=== PATIENT | female | born 1990 | race Caucasian/White ===

== ENCOUNTER 2021-09-10 10:56 | Emergency (ER) | payer OTHER, SELFPAY ==
--- NOTE | 2021-09-10 11:03 | ED.GENADULT ---
HPI - General Adult General Chief complaint: Dental/Oral Stated complaint: Right Jaw Pain Time Seen by Provider: 09/10/21 11:03 Source: patient and RN notes reviewed Mode of arrival: ambulatory Limitations: no limitations History of Present Illness HPI narrative: 30-year-old female presents to the [facility] with complaints of right cheek pain since last night. Took ibuprofen last night. Denies any other symptoms Related Data Allergies Allergy/AdvReac Type Severity Reaction Status Date / Time No Known Allergies Allergy Unverified 09/10/21 11:07 Review of Systems Review of Systems: All systems reviewed & are unremarkable except as noted in HPI and below Constitutional: Constitutional: Reports no additional constitutional complaints, Denies chills and Denies fever(s) Eyes: Eyes: Reports no additional eye complaints ENT: Reports as per HPI Comments: Right cheek lump to shoulder with pain Cardiovascular: Cardiovascular: Reports no additional cardiovascular complaints Respiratory: Respiratory: Reports no additional respiratory complaints Gastrointestinal: Gastrointestinal: Reports no additional gastrointestinal complaints Musculoskeletal: Musculoskeletal: Reports no additional musculoskeletal complaints Integumentary/Breasts: Skin/Breast: Reports system reviewed and no additional complaints, except as docu Neurologic: Reports system reviewed and no additional complaints, except as documented Psychiatric: Psychiatric: Reports no additional psychiatric complaints Allergic/Immunologic: Allergic/Immunologic: Reports no additional allergic/immunologic complaints PMFSH Past Medical History Medical History (Updated 09/10/21 @ 13:42 by Dianna Martins) No significant medical problems Surgical History Surgical History (Updated 09/10/21 @ 13:42 by Dianna Martins) No significant past surgical history Comments At the time of my signature, I reviewed and agree with the nursing past medical, surgical, social, and family history. There is no relevant family history pertinent to the patient complaint. Exam Const: General: healthy appearing, no acute distress and alert Nutritional Appearance: well nourished Orientation/consciousness: patient oriented x3 Limitations: no limitations HENMT: Head: normal to inspection Ears: external ears normal General nose exam: Normal external nose present Mouth/tongue images: 1. Half centimeter raised area Eyes: Pupils: Equal, round and reactive pupils present Neck: Neck: normal visual inspection, no lymphadenopathy and no meningeal signs Chest: Chest palpation & inspection: normal inspection of the chest Resp: Effort & Inspection: normal respiratory effort and no use of accessory muscles Auscultation: clear to auscultation bilaterally, no crackles, no rales, no rhonchi and no wheezes Cardio: Rate: regular rate Rhythm: regular rhythm GI: GI Palp: Yes Soft to palpation and No Tenderness to palpation present (GI) : General: Yes no CVA tenderness Back/Spine/Pelvis: Back: no CVA tenderness Skin: General skin exam: normal color Rashes: no rashes Wounds: no wounds Neuro: General: patient oriented x3, moves all extremities, no meningeal signs and no focal motor deficits Cranial nerves: Yes Equal, round and reactive pupils present Speech: normal speech Gait exam (Neuro): Normal gait present Extrem: General: normal to inspection Psych: Appearance: grossly normal and well kempt Mental Status: mental status grossly normal Affect: normal affect Attitude: cooperative Thought content: Yes Normal thought content present Course Course Emergency Course: Discharge instructions reviewed with patient, as well as provided in writing per nursing staff. The instructions also include specific and strict return/GO TO THE ER as well as f/u information. All questions have been answered, and the patient deny any further questions with discharge and discharge plan. Some par
[2021-09-10 11:04] VITALS: BP 129/78; PULSE 75; RESP 16; TEMP 36.7; O2SAT 99
== END 2021-09-10 11:11 | disposition home or self-care (01) ==
PROVIDERS: Emergency Provider Nurse Practitioner; PCP Family Medicine Adolescent Medicine
DX: K12.0 Recurrent oral aphthae (principal)
CPT/HCPCS: 99213; G0463

== ENCOUNTER 2022-10-13 17:41 | Emergency (ER) | payer OTHER, SELFPAY ==
[2022-10-13] VITALS (7 sets, daily range): BP systolic 116–123; BP diastolic 72; PULSE 76–102; RESP 16; TEMP 37.1; O2SAT 100
[2022-10-13 21:20] LABS: Basophils Percent Auto 0.3 % (0.2-1.2); Eosinophils Percent Auto 0.4 % (0-4.4); Hemoglobin 13.2 g/dL (12.0-15.0); Immature Granulocyte Absolute 0.04 K/mm3 (0.00-0.031); Immature Granulocyte Percent A 0.5 % (0-0.5); Lymphocytes Absolute Auto 0.91 K/mm3 (0.9-3.2); Lymphocytes Percent Auto 11.9 % (18.3-44.2); Mean Corpuscular HGB Conc 33.8 g/dl (32-36); Mean Corpuscular Hemoglobin 29.4 pg (26-34); Mean Corpuscular Volume 86.9 fl (80-100); Mean Platelet Volume 10.8 fl (7.4-10.4); Monocytes Absolute Auto 0.5 K/mm3 (0.1-0.6); Monocytes Percent Auto 7.1 % (2.6-8.5); Neutrophils Absolute Auto 6.1 K/mm3 (1.3-6.7); Neutrophils Percent Auto 79.8 % (45.5-73.1); Platelet Count Result 192 k/mm3 (150-375); Red Blood Count 4.49 M/mm3 (4.2-5.4); Red Cell Distribution Width 14.2 % (11.5-14.5); White Blood Count 7.6 K/mm3 (4.5-10.0)
[2022-10-13 21:26] LABS: Appearance Urine Slightly Cloudy (Clear); Bilirubin Urine 1+ (Negative); Blood Urine Negative (Negative); Color Urine Yellow (Yellow); Glucose Urine UA Negative (Negative); Ketones Urine 2+ mg/dL (Negative); Leukocyte Esterase Ur 1+ LEU/UL (Negative); Nitrate Urine Negative (Negative); Protein Urine 1+ mg/dL (Negative); Specific Grav Ur >= 1.030 (1.001-1.035); Urobilinogen Urine 0.2 mg/dL (<2.0)
[2022-10-13 21:30] LABS: Bacteria Urine Trace /hpf; Mucus Urine Heavy /lpf; Squamous Epithelial Cell Urine Many /hpf (Few)
[2022-10-13 21:31] LABS: Add Urine Microscopic? YES
[2022-10-13 21:33] LABS: Alanine Aminotransferase 20 U/L (6-35); Albumin Level 4.4 g/dL (3.5-5.1); Alkaline Phosphatase 75 U/L (38-126); Anion Gap 7 mmol/L (8-16); Aspartate Amino Transferase 21 U/L (14-36); Bilirubin,Total 0.5 mg/dL (0.2-1.3); Blood Urea Nitrogen 6 mg/dL (7-17); Calcium 8.8 mg/dL (8.4-10.2); Carbon Dioxide 25 mmol/L (22-30); Chloride 102 mmol/L (98-107); Estimated CRCL calculation 162 ml/min; Estimated Glomerular Filt Rate > 60; Glucose 121 mg/dL (65-110); Lipase 31 U/L (23-300); Potassium 3.6 mmol/L (3.4-5.0); Sodium 134 mmol/L (137-145)
--- NOTE | 2022-10-13 22:23 | ED.NAVMDI ---
HPI - Nausea/Vomiting/Diarrhea General Chief complaint: Nausea/Vomiting/Diarrhea Stated complaint: vomiting, 10 weeks Time Seen by Provider: 10/13/22 22:10 History of Present Illness HPI Narrative: 31-year-old female G3, P2 who is 10 weeks reports for nausea, vomiting, diarrhea that started last night. Patient reports around 10-15 episodes of vomiting throughout the night with 7 episodes of diarrhea. Denies hematemesis, melena, hematochezia. Patient reports positive sick contacts within her family who are sick with similar symptoms. Patient reports she feels improved today and has not vomited in 15 hours. Reports she called her OB about her illness and said her OB advised her to come to the ED if she would feel more comfortable. Patient denies abdominal pain, vaginal bleeding, back pain, chest pain, shortness of breath, body aches, chills, fever, dysuria, urinary frequency or urgency, hematuria. Patient reports she has an ultrasound that is confirmed intrauterine . Related Data Allergies Allergy/AdvReac Type Severity Reaction Status Date / Time No Known Allergies Allergy Verified 07/14/22 13:29 Review of Systems Review of Systems: CONSTITUTIONAL: Denies fever, chills EYES: Denies visual changes, redness, or discharge. ENT: Denies rhinorrhea, congestion, sore throat, or otalgia. CARDIOVASCULAR: Denies chest pain, palpitations, or edema. RESPIRATORY: Denies cough or dyspnea. GASTROINTESTINAL: See HPI GENITOURINARY: Denies dysuria or hematuria. SKIN: Denies rash or itching. MUSCULOSKELETAL: Denies back pain, joint pain, or myalgia. NEUROLOGIC: Denies headache, numbness, dizziness, or weakness. PSYCHIATRIC: Denies anxiety or depression. [facility] Past Medical History Medical History No significant medical problems Surgical History Surgical History No significant past surgical history Family History Family History Mother Diabetes mellitus Hypertension COPD (chronic obstructive pulmonary disease) Osteoporosis Father Hyperlipemia Arthritis Social History Social History Smoking status: Never smoker Second hand tobacco smoke exposure: No Alcohol intake: current Alcohol use details: Seldom Substance use: never Substance use type: does not use Living arrangements: with family Occupation/Education: unemployed Gender identity (if verbalized by the patient): Female Spiritual care concerns: No Agree to blood products: Yes Exam Narrative: GENERAL: Well-appearing, well-nourished, and in no acute distress. HEAD: Normocephalic, atraumatic. EYES: PERRLA and EOMI. ENT: Nares clear, no rhinorrhea or epistaxis. Mucous membranes moist. Oropharynx without tonsillar hypertrophy exudate or other lesions. NECK: Supple. No adenopathy or masses. CHEST: Clear to auscultation. No respiratory distress. No wheezes rales or rhonchi HEART: Regular rate and rhythm. No murmur heard. Normal peripheral pulses. ABDOMEN: Soft, nontender, nondistended, normal active bowel sounds. No CVA tenderness EXTREMITIES: Normal range of motion. No edema. SKIN: Warm, dry, no rash. NEURO: No focal deficits. Alert and oriented x3. PSYCH: Normal mood and affect. Course Vital Signs Vital signs: Vital Signs Temperature 98.8 F 10/13/22 18:26 Pulse Rate 76 10/13/22 18:26 Respiratory Rate 16 10/13/22 18:26 Blood Pressure 116/72 10/13/22 18:26 Pulse Oximetry 100 10/13/22 18:26 Oxygen Delivery Room Air 10/13/22 18:26 Temperature 98.8 F 10/13/22 18:26 Pulse Rate 102 H 10/13/22 21:04 Respiratory Rate 16 10/13/22 21:04 Blood Pressure 123/72 10/13/22 21:04 Pulse Oximetry 100 10/13/22 22:45 Oxygen Delivery Room Air 10/13/22 18:26
[2022-10-13] MEDS: METOCLOPRAMIDE HCL INJ 10 MG/2 ML VIAL IV PUSH (22:42)
[2022-10-13] MEDS: SODIUM CHLORIDE 0.9% IV 1,000 ML 999 ML IV CONT (22:42)
== END 2022-10-14 00:09 | disposition home or self-care (01) ==
PROVIDERS: Emergency Medicine; Emergency Provider Physician Assistant; PCP Family Medicine Adolescent Medicine
DX: O21.9 Vomiting of pregnancy, unspecified (principal); O99.611 Diseases of the digestive system complicating pregnancy, first trimester; K52.9 Noninfective gastroenteritis and colitis, unspecified; Z3A.10 10 weeks gestation of pregnancy
CPT/HCPCS: 36415; 80053; 81001; 81025; 83690; 85025; 96361; 96365; 96375; 99284; J0696; J2765; J7030

== ENCOUNTER 2022-12-16 11:36 | Outpatient (CLI) | payer OTHER, SELFPAY ==
--- NOTE | ~2022-12-16 | US_ITS ---
EXAMINATION: US OB limited DATE: 12/16/2022 12:44 INDICATION: Leaking fluid. Third trimester. TECHNIQUE: Real-time ultrasound of the pelvis was performed. COMPARISON: None. FINDINGS: There is a single fetus in transverse lie. The placenta is anterior. The cervical length is 4.4 cm o n transabdominal images, which is normal. heart rate is 138 beats per minute (bpm). The amnioti c fluid index is 9.3 cm, which is normal. IMPRESSION: 1. Single living fetus in transverse lie. 2. Normal amniotic fluid index. Reviewed, dictated and finalized at location A.
[2022-12-16 11:52] VITALS: BP 125/69; PULSE 97
--- NOTE | 2022-12-16 11:55 | PC.NURSE ---
Pt has complaint of possible rupture of membranes. Pt was leaving [facility] when she felt a gush and a trickle. Pt denies any further leaking. pt is 20 weeks, FHT dopplered at 155.
== END 2022-12-16 12:57 | disposition home or self-care (01) ==
LOC: ANHOBOP 11:40 → ANHOBPP 11:41
PROVIDERS: PCP Family Medicine Adolescent Medicine; Visit Provider Advanced Practice Midwife
DX: O42.913 Preterm premature rupture of membranes, unspecified as to length of time between rupture and onset of labor, third trimester (principal); Z3A.00 Weeks of gestation of pregnancy not specified
CPT/HCPCS: 76815; 84112; 99199

== ENCOUNTER 2023-01-11 14:59 | Emergency (ER) | payer OTHER, SELFPAY ==
[2023-01-11] VITALS (18 sets, daily range): BP systolic 100–129; BP diastolic 53–80; PULSE 79–109; RESP 15–18; TEMP 36.3–36.6; O2SAT 98–100
[2023-01-11 15:47] LABS: Basophils Percent Auto 0.4 % (0.2-1.2); Eosinophils Absolute Auto 0.2 K/mm3 (0-0.3); Eosinophils Percent Auto 2.5 % (0-4.4); Hematocrit 35.3 % (37.0-47.0); Hemoglobin 12.1 g/dL (12.0-15.0); Immature Granulocyte Absolute 0.03 K/mm3 (0.00-0.031); Immature Granulocyte Percent A 0.4 % (0-0.5); Lymphocytes Absolute Auto 0.58 K/mm3 (0.9-3.2); Lymphocytes Percent Auto 6.8 % (18.3-44.2); Mean Corpuscular HGB Conc 34.3 g/dl (32-36); Mean Corpuscular Hemoglobin 30.2 pg (26-34); Mean Platelet Volume 9.8 fl (7.4-10.4); Monocytes Absolute Auto 0.5 K/mm3 (0.1-0.6); Monocytes Percent Auto 5.7 % (2.6-8.5); Neutrophils Absolute Auto 7.2 K/mm3 (1.3-6.7); Neutrophils Percent Auto 84.2 % (45.5-73.1); Platelet Count Result 228 k/mm3 (150-375); Red Blood Count 4.01 M/mm3 (4.2-5.4); Red Cell Distribution Width 14.6 % (11.5-14.5); White Blood Count 8.5 K/mm3 (4.5-10.0)
[2023-01-11 15:59] LABS: Alanine Aminotransferase 70 U/L (6-35); Albumin Level 4.2 g/dL (3.5-5.1); Alkaline Phosphatase 84 U/L (38-126); Anion Gap 9 mmol/L (8-16); Aspartate Amino Transferase 85 U/L (14-36); Bilirubin,Total 0.4 mg/dL (0.2-1.3); Blood Urea Nitrogen 5 mg/dL (7-17); Calcium 8.9 mg/dL (8.4-10.2); Carbon Dioxide 24 mmol/L (22-30); Chloride 103 mmol/L (98-107); Estimated CRCL calculation 131 ml/min; Estimated Glomerular Filt Rate > 60; Glucose 102 mg/dL (65-110); Lipase 80 U/L (23-300); Potassium 2.9 mmol/L (3.4-5.0); Sodium 136 mmol/L (137-145)
--- NOTE | 2023-01-11 16:07 | ED.GENADULT ---
HPI - General Adult General Chief complaint: Nausea/Vomiting/Diarrhea Stated complaint: diarrhea Time Seen by Provider: 01/11/23 15:41 History of Present Illness HPI narrative: 32-year-old female presented to the emergency department for evaluation of persistent diarrhea for the last 3 days. Patient is approximately 24 weeks and does follow-up with Henna Trejo. Patient states on Thursday she had Qdoba and on Thursday night she began having diarrhea. Patient denies any blood in her stool denies any associated nausea or vomiting or any abdominal pain. Related Data Allergies Allergy/AdvReac Type Severity Reaction Status Date / Time No Known Allergies Allergy Verified 01/11/23 15:00 Review of Systems Review of Systems: All systems reviewed & are unremarkable except as noted in HPI and below PMFSH Past Medical History Medical History No significant medical problems Surgical History Surgical History No significant past surgical history Family History Family History Mother Diabetes mellitus Hypertension COPD (chronic obstructive pulmonary disease) Osteoporosis Father Hyperlipemia Arthritis Social History Social History Smoking status: Never smoker Second hand tobacco smoke exposure: No Alcohol intake: current Alcohol use details: Seldom Substance use: never Substance use type: does not use Living arrangements: with family Occupation/Education: unemployed Gender identity (if verbalized by the patient): Female Spiritual care concerns: No Agree to blood products: Yes Exam Narrative: APPEARANCE: Well appearing, no pain, no distress, well-nourished. HEAD: normocephalic, atraumatic. EYES: PERRLA/EOMI, conjunctivae clear. NOSE: Normal no drainage NECK: Supple. No adenopathy, no masses. RESPIRATORY: Airway patent, respirations nonlabored. Clear to auscultation bilaterally, no rales, rhonchi, wheezing. CARDIOVASCULAR: Regular rate and rhythm without murmurs rubs or gallops. ABDOMINAL: Soft, nontender, nondistended, normal bowel sounds MUSCULOSKELETAL: Moves all extremities. Strength/ROM intact, No edema, No calf tenderness. NEURO: Alert. Cranial nerves II through XII intact. Grossly intact SKIN: Warm, dry. Normal Color Course Course Emergency Course: heart tones were documented by nursing. Patient denied any lower abdominal cramping or uterine cramping. Patient denies any vaginal bleeding or vaginal discharge. Patient was treated with IV fluids. Patient was unable to make a stool sample while in the ED. Patient was encouraged to follow clear liquid diet. Patient was also encouraged to have close follow-up with [employer]. All questions and concerns were addressed. Patient was well-appearing and stable at time of discharge. Vital Signs Vital signs: Vital Signs Temperature 97.3 F L 01/11/23 15:02 Pulse Rate 101 H 01/11/23 15:02 Respiratory Rate 15 01/11/23 15:02 Blood Pressure 129/80 01/11/23 15:02 Pulse Oximetry 100 01/11/23 15:02 Oxygen Delivery Room Air 01/11/23 15:02 Temperature 97.8 F 01/11/23 15:46 Pulse Rate 103 H 01/11/23 21:16 Respiratory Rate 16 01/11/23 21:16 Blood Pressure 107/65 01/11/23 21:16 Pulse Oximetry 100 01/11/23 21:16 Oxygen Delivery Room Air 01/11/23 15:02 Medical Decision Making Vital Signs Vital Signs: Vital Signs Temperature 97.3 F L 01/11/23 15:02 Pulse Rate 101 H 01/11/23 15:02 Respiratory Rate 15 01/11/23 15:02 Blood Pressure 129/80 01/11/23 15:02 Pulse Oximetry 100 01/11/23 15:02 Oxygen Delivery Room Air 01/11/23 15:02 Temperature 97.8 F 01/11/23 15:46 Pulse Rate 103 H 01/11/23 21:16 Respiratory Rate 16 01/11/23 21:16 Blood
[2023-01-11] MEDS: SODIUM CHLORIDE 0.9% IV 1,000 ML 999 ML IV CONT (16:26)
[2023-01-11] MEDS: KCL 20 MEQ/SW 100 ML 100 ML 50 MEQ IVPB (19:17)
[2023-01-11] MEDS: POTASSIUM CHLORIDE 20 MEQ PACKET (FOR LIQUID) 40 MEQ PO (19:17)
[2023-01-11] MEDS: SODIUM CHLORIDE 0.9% IV 1,000 ML 999 ML (19:32)
--- NOTE | 2023-01-11 19:32 | PC.NURSE ---
Pt c/o potassium burning arm during infusion. EDP notified, new orders placed.
== END 2023-01-11 21:27 | disposition home or self-care (01) ==
PROVIDERS: General Practice; Emergency Provider Emergency Medicine; PCP Family Medicine Adolescent Medicine
DX: O99.282 Endocrine, nutritional and metabolic diseases complicating pregnancy, second trimester (principal); E87.6 Hypokalemia; R19.7 Diarrhea, unspecified; Z3A.24 24 weeks gestation of pregnancy
CPT/HCPCS: 36415; 80053; 83690; 85025; 96361; 96365; 96366; 99284; A9270; J3480; J7030

== ENCOUNTER 2023-02-09 15:03 | Observation (INO) | payer OTHER, SELFPAY ==
--- NOTE | ~2023-02-09 | US_ITS ---
US_ABDRLQ_US 02/09/2023 16:39 Indication: Check appendix. Right-sided abdominal pain. Procedure: High-resolution ultrasound of the right abdomen Comparison: No prior studies for comparison. Findings: There is mild right hydronephrosis. The appendix is not visualized. No adnexal masses or fl uid collections. Impression: 1: Appendix not visualized. 2: Mild right hydronephrosis. Reviewed, dictated and finalized at location [] Impression: 1: Appendix not visualized. 2: Mild right hydronephrosis.
[2023-02-09 15:33] VITALS: BP 104/59; PULSE 85
[2023-02-09 15:45] VITALS: BP 101/58; PULSE 87
[2023-02-09 15:59] LABS: Appearance Urine Cloudy (Clear); Bacteria Urine 3+ /hpf; Bilirubin Urine Negative (Negative); Blood Urine Trace (Negative); Color Urine Yellow (Yellow); Glucose Urine UA Negative (Negative); Hyaline Casts Urine Present /lpf; Ketones Urine Negative (Negative); Leukocyte Esterase Ur 3+ LEU/UL (NEGATIVE); Nitrate Urine Negative (Negative); Protein Urine Negative (Negative); RBC Urine 0-2 /hpf (0-2); Specific Grav Ur 1.007 (1.001-1.035); Squamous Epithelial Cell Urine Moderate /hpf (Few); Urobilinogen Urine 0.2 mg/dL (<2.0); WBC Urine >100 /hpf (0-3)
[2023-02-09 16:00] VITALS: BP 109/61; PULSE 90
[2023-02-09 16:00] LABS: Add Urine Microscopic? YES
[2023-02-09 16:15] VITALS: BP 101/54; PULSE 83
[2023-02-09 17:03] LABS: Basophils Percent Auto 0.3 % (0.2-1.2); Eosinophils Absolute Auto 0.4 K/mm3 (0-0.3); Eosinophils Percent Auto 4.7 % (0-4.4); Hematocrit 35.4 % (37.0-47.0); Hemoglobin 11.5 g/dL (12.0-15.0); Immature Granulocyte Absolute 0.04 K/mm3 (0.00-0.031); Immature Granulocyte Percent A 0.5 % (0-0.5); Lymphocytes Absolute Auto 1.16 K/mm3 (0.9-3.2); Lymphocytes Percent Auto 14.6 % (18.3-44.2); Mean Corpuscular HGB Conc 32.5 g/dl (32-36); Mean Corpuscular Volume 89.4 fl (80-100); Mean Platelet Volume 10.3 fl (7.4-10.4); Monocytes Absolute Auto 0.5 K/mm3 (0.1-0.6); Monocytes Percent Auto 6.2 % (2.6-8.5); Neutrophils Absolute Auto 5.9 K/mm3 (1.3-6.7); Neutrophils Percent Auto 73.7 % (45.5-73.1); Platelet Count Result 188 k/mm3 (150-375); Red Blood Count 3.96 M/mm3 (4.2-5.4); Red Cell Distribution Width 14.3 % (11.5-14.5); White Blood Count 7.9 K/mm3 (4.5-10.0)
[2023-02-09] MEDS: cefTRIAXone 1 GM VIAL IM (17:26)
--- NOTE | 2023-03-01 20:48 | P.PNOB_ITS ---
OB - Triage/Final Diagnosis Visit Information Comments/Additional reasons for admission: I have assessed the risk for this patient, Neelam Yoo, and determined that she would benefit from observation care. Evaluation Laboratory results: Laboratory Tests 02/09/23 02/09/23 15:26 16:17 WBC 7.9 RBC 3.96 L Hgb 11.5 L Hct 35.4 L MCV 89.4 MCH 29.0 MCHC 32.5 RDW 14.3 Plt Count 188 MPV 10.3 Immature Gran % (Auto) 0.5 Neut % (Auto) 73.7 H Lymph % (Auto) 14.6 L [place] % (Auto) 6.2 Eos % (Auto) 4.7 H Baso % (Auto) 0.3 Lymph # (Auto) 1.16 [place] # (Auto) 0.5 Eos # (Auto) 0.4 H Baso # (Auto) 0.0 Abs Immat Gran (auto) 0.04 H Absolute Neuts (auto) 5.9 Absolute Nucleated RBC 0.0 Nucleated RBC % 0.0 Urine Color Yellow Urine Appearance Cloudy H Urine pH 7.0 Ur Specific [place] 1.007 Urine Protein Negative Urine Glucose (UA) Negative Urine Ketones Negative Ur Blood (Man) Trace Urine Nitrate Negative Urine Bilirubin Negative Urine Urobilinogen 0.2 Ur Leukocyte Esterase 3+ H Urine RBC 0-2 Urine WBC >100 H Ur Squamous Epith Cells Moderate Urine Bacteria 3+ H Urine Casts 6-10 Hyaline Casts Present Final Diagnosis (1) Abdominal pain: Code(s): R10.9 - Unspecified abdominal pain Status: Acute
== END 2023-02-09 17:30 | disposition home or self-care (01) ==
PROVIDERS: Admitting Provider Obstetrics & Gynecology; PCP Family Medicine Adolescent Medicine; Visit Provider Obstetrics & Gynecology
DX: O26.893 Other specified pregnancy related conditions, third trimester (principal); R10.9 Unspecified abdominal pain; Z3A.28 28 weeks gestation of pregnancy
CPT/HCPCS: 36415; 76705; 81001; 85025; 87086; 87088; 96372; G0378; G0379; J0696

== ENCOUNTER 2023-04-16 15:41 | Observation (INO) | payer OTHER, SELFPAY ==
[2023-04-16 16:00] VITALS: BMI 34.6
--- NOTE | 2023-04-16 16:40 | OBADM ---
This patient, Neelam Yoo, admitted to the OB room OB Post 116 for observation. Patient/family oriented to hospital policies and general routines including ID bracelet, bed and alarms, visiting hours, pain management, procedures, bathroom and other care routines, personal items, smoking policy, room service/diet, and visiting hours. Patient/Family are encouraged to report perceived risks to care and to ask questions if they do not understand what they are told or what they should do.
--- NOTE | 2023-04-16 16:46 | PC.NURSE ---
1550--Pt. presents with reports of pain at the upper part of her umbilicus. Abdomen soft and non-tender except for right at the top of the umbilicus. Upon visual inspection there is no obvious protrusion at the umbilicus. Pt. denies any vaginal bleeding and LOF. She is able to eat and denies any N/V/D. She states that the pain started this afternoon and is noticeable whenever she gets up from a sitting position.
--- NOTE | 2023-04-16 16:51 | PC.NURSE ---
[id number]--Phone call to Milana Trejo CNM re: pt's reports of periumbilical pain and assessment data, fhr tracing and v.s. Orders to DC home with instructions for ice to abdomen and sit tilted to one side or the other. No other orders received at this time.
--- NOTE | 2023-04-17 15:21 | PM.OBTRLD ---
OB - Triage/Final Diagnosis Visit Information Date of evaluation: 04/16/23 Reason for evaluation: other (abd pain) Comments/Additional reasons for admission: I have assessed the risk for this patient, Neelam Yoo, and determined that she would benefit from observation care.
== END 2023-04-16 16:40 | disposition home or self-care (01) ==
PROVIDERS: Admitting Provider Obstetrics & Gynecology; PCP Family Medicine Adolescent Medicine; Visit Provider Obstetrics & Gynecology
DX: O26.893 Other specified pregnancy related conditions, third trimester (principal); R10.9 Unspecified abdominal pain; Z3A.38 38 weeks gestation of pregnancy
CPT/HCPCS: G0378; G0379

== ENCOUNTER 2023-04-22 06:08 | Inpatient (IN) | payer OTHER, SELFPAY ==
[2023-04-22] VITALS (65 sets, daily range): BP systolic 97–148; BP diastolic 45–112; PULSE 25–152; RESP 14; TEMP 36.1–36.7; O2SAT 88–100; BMI 35.2
--- NOTE | 2023-04-22 06:35 | LDADM ---
This patient, Neelam Yoo, was admitted to Labor/Delivery/Recovery 103 on 04/22/23 at 06:08. Plans for labor, pain management and were discussed with patient. Patient/family oriented to hospital policies and general routines including ID bracelet, bed and alarms, visiting hours, pain management, procedures, bathroom and other care routines, personal items, smoking policy, room service/diet and guest tray routines, infant security routines, and visiting hours. Patient/Family are encouraged to report perceived risks to care and to ask questions if they do not understand what they are told or what they should do. See OBIX for further documentation.
[2023-04-22 06:48] LABS: Basophils Percent Auto 0.5 % (0.2-1.2); Eosinophils Absolute Auto 0.2 K/mm3 (0-0.3); Eosinophils Percent Auto 3.3 % (0-4.4); Hematocrit 36.5 % (37.0-47.0); Hemoglobin 12.4 g/dL (12.0-15.0); Immature Granulocyte Absolute 0.03 K/mm3 (0.00-0.031); Immature Granulocyte Percent A 0.5 % (0-0.5); Lymphocytes Absolute Auto 1.15 K/mm3 (0.9-3.2); Lymphocytes Percent Auto 17.4 % (18.3-44.2); Mean Corpuscular Hemoglobin 29.4 pg (26-34); Mean Corpuscular Volume 86.5 fl (80-100); Mean Platelet Volume 11.1 fl (7.4-10.4); Monocytes Absolute Auto 0.4 K/mm3 (0.1-0.6); Monocytes Percent Auto 5.9 % (2.6-8.5); Neutrophils Absolute Auto 4.8 K/mm3 (1.3-6.7); Neutrophils Percent Auto 72.4 % (45.5-73.1); Platelet Count Result 164 k/mm3 (150-375); Red Blood Count 4.22 M/mm3 (4.2-5.4); Red Cell Distribution Width 15.1 % (11.5-14.5); White Blood Count 6.6 K/mm3 (4.5-10.0)
[2023-04-22 06:53] LABS: Glucose Point of Care 151 mg/dl (65-105)
--- NOTE | 2023-04-22 07:18 | WPDOBADMIT ---
Obstetrics - Admit Note Admission Note: record reviewed. No pertinent additions to the history and/or any subsequent changes in the physical findings that are not consistent with the expected course of the were found. GDMA-1, Non compliant with bringing in sugar log, unsure if numbers have been documented accurately, IOL co-managing with Dr. Payton. SVE 3-/-2 AROM moderate amount of clear, odorless fluid, anticipate vaginal delivery Additions to the history and/or subsequent changes in the physical findings follow. None.
--- NOTE | 2023-04-22 07:35 | PC.NURSE ---
0650: LA at bedside, RN informed LA of blood glucose of 151, patient's complaints of symptoms of a UTI, and colon spasms. Orders to allow patient to take her own medication for her colon spasms as prescribed and orders to send a UA to determine if patient has UTI. CNAleena wants 2g of Rocephin IV if patient has UTI. CNM wants to be notified if patient's blood glucose is over 200.
[2023-04-22 07:38] LABS: HIV 1/2 Ab P24 Ag Result Negative (Negative)
[2023-04-22 08:09] LABS: Appearance Urine Cloudy (Clear); Bacteria Urine 2+ /hpf; Bilirubin Urine Negative (Negative); Calcium Oxalate Crystals Urine Present /hpf; Color Urine Yellow (Yellow); Glucose Urine UA Negative (Negative); Ketones Urine Negative (Negative); Leukocyte Esterase Ur 3+ LEU/UL (Negative); Need Manual Microscopic Reviewed; Nitrate Urine Negative (Negative); Non Pathogenic Casts 0-2; Protein Urine Negative (Negative); Specific Grav Ur 1.017 (1.001-1.035); Squamous Epithelial Cell Urine Moderate /hpf (Few); Urobilinogen Urine 0.2 mg/dL (<2.0); WBC Urine 21-50 /hpf; pH Urine 6.5 (5.0-9.0)
[2023-04-22 08:15] LABS: Add Urine Microscopic? YES
[2023-04-22] MEDS: cefTRIAXone 2 GM/NS 100 ML 2 GM/100 ML BAG IVPB (09:04)
--- NOTE | 2023-04-22 09:28 | WPDANESEPP ---
Anes - Eval Pre Procedure Procedure: labor epidural Date/Time: 04/22/23 09:28 Surgeon: mookie Preop Diagnosis: pain during labor Pre Op Diagnosis: induction of labor Patient Data Age: 32 Gender: F Height: 1.7 m Weight: 102 kg Last Vital Signs Temp 36.1 C L 04/22/23 08:30 Pulse 69 04/22/23 09:15 BP 109/57 L 04/22/23 09:15 O2 Del Method Room Air 04/22/23 06:33 Allergies Allergy/AdvReac Type Severity Reaction Status Date / Time No Known Allergies Allergy Verified 01/11/23 15:00 Home Medications Medication Instructions Recorded Confirmed Type levothyroxine 50 mcg tablet 50 mcg PO DAILY 02/09/23 04/22/23 History dicyclomine 10 mg capsule 10 mg PO TID PRN abdominal pain 02/10/23 04/22/23 Rx #60 caps aspirin 81 mg tablet 81 mg PO DAILY 04/02/23 04/02/23 History prenat.vits,ophelia,dgn-grwo-xngms 1 tablet DAILY 04/02/23 04/22/23 History Laboratory Tests 04/22/23 04/22/23 04/22/23 06:31 06:40 07:30 WBC 6.6 K/mm3 (4.5-10.0) RBC 4.22 M/mm3 (4.2-5.4) Hgb 12.4 g/dL (12.0-15.0) Hct 36.5 L % (37.0-47.0) MCV 86.5 fl (80-100) MCH 29.4 pg (26-34) MCHC 34.0 g/dl (32-36) RDW 15.1 H % (11.5-14.5) Plt Count 164 k/mm3 (150-375) MPV 11.1 H fl (7.4-10.4) Immature Gran % (Auto) 0.5 % (0-0.5) Neut % (Auto) 72.4 % (45.5-73.1) Lymph % (Auto) 17.4 L % (18.3-44.2) [place] % (Auto) 5.9 % (2.6-8.5) Eos % (Auto) 3.3 % (0-4.4) Baso % (Auto) 0.5 % (0.2-1.2) Lymph # (Auto) 1.15 K/mm3 (0.9-3.2) [place] # (Auto) 0.4 K/mm3 (0.1-0.6) Eos # (Auto) 0.2 K/mm3 (0-0.3) Baso # (Auto) 0.0 K/mm3 (0.0-0.1) Abs Immat Gran (auto) 0.03 K/mm3 (0.00-0.031) Absolute Neuts (auto) 4.8 K/mm3 (1.3-6.7) Absolute Nucleated RBC 0.0 K/mm3 (0.0-0.012) Nucleated RBC % 0.0 % (0.0-0.2) POC Capillary Glucose 151 H mg/dl (65-105) Urine Color Yellow (Yellow) Urine Appearance Cloudy H (Clear) Urine pH 6.5 (5.0-9.0) Ur Specific [place] 1.017 (1.001-1.035) Urine Protein Negative mg/dL (Negative) Urine Glucose (UA) Negative mg/dL (Negative) Urine Ketones Negative mg/dL (Negative) Ur Blood (Man) Non-hemolyzed trace (Negative) Urine Nitrate Negative (Negative) Urine Bilirubin Negative (Negative) Urine Urobilinogen 0.2 mg/dL (<2.0) Add Ur Microanalysis Reviewed Leukocyte Esterase Rfl 3+ H [place]/UL (Negative) Urine RBC 6-10 H /hpf (0-2) Urine WBC 21-50 H /hpf Ur Squamous Epith Cells Moderate /hpf (Few) Calcium Oxalate Crystal Present /hpf (None) Urine Bacteria 2+ H /hpf Urine Casts 0-2 RPR Pending HIV 1&2 Ab/P24 Ag 4thGn Negative (Negative) Blood Type Antibody Screen 04/22/23 08:02 WBC RBC Hgb Hct MCV MCH MCHC RDW Plt Count MPV Immature Gran % (Auto) Neut % (Auto) Lymph % (Auto) [place] % (Auto) Eos % (Auto) Baso % (Auto) Lymph # (Auto) [place] # (Auto) Eos # (Auto) Baso # (Auto) Abs Immat Gran (auto) Absolute Neuts (auto) Absolute Nucleated RBC Nucleated RBC % POC Capillary Glucose Urine Color Urine Appearance Urine pH Ur Specific [place] Urine Protein Urine Glucose (UA) Urine Ketones Ur Blood (Man) Urine Nitrate Urine Bilirubin Urine Urobilinogen Add Ur Microanalysis Leukocyte Esterase Rfl Urine RBC Urine WBC Ur Squamous Epith Cells
[2023-04-22 10:59] LABS: Glucose Point of Care 143 mg/dl (65-105)
[2023-04-22] MEDS: fentaNYL CITRATE INJ (*CRX) 100 MCG/2 ML VIAL 50 MCG IV PUSH (12:03)
[2023-04-22] MEDS: ONDANSETRON INJ 4 MG/2 ML VIAL IV PUSH (12:41)
--- NOTE | 2023-04-22 13:42 | PM.OBPRVD ---
OB - Delivery Note Procedure Delivery date: 04/22/23 Procedure: Events: Gestational Diabetes Induction method: AROM and Per Pitocin Protocol Delivery monitor: External FHT and External Uterine Route of delivery: Laceration Description: Superficial Delivery repair: vicryl Specimen: No Quantitative Blood Loss (ml): 120 Anesthesia type: Epidural Disposition: Floor Baby Date of : 04/22/23 Time of : 13:31 Weeks of gestation at delivery: 39 Infant gender: Male presentation: vertex position: Left Occiput Anterior Placenta delivery description: Spontaneous Cord Vessel Description: 3 Vessels score one minute: 9 score five minutes: 9 Narrative: mother and baby skin to skin in stable condition
[2023-04-22] MEDS: OXYTOCIN 30 UNITS/NS 500 ML 30 UNITS/500 ML BAG 125 UNITS IV CONT (14:12)
[2023-04-22 14:36] LABS: Rapid Plasma Reagin Non-Reactive (NonReactive)
[2023-04-22] MEDS: WITCH HAZEL 40 PADS 1 PAD TOPICAL (16:04)
[2023-04-22] MEDS: BENZOCAINE 20% AER SPR (*SP) 56 GM CAN 1 SPRAY TOPICAL (16:05)
--- NOTE | 2023-04-22 17:45 | OBPPTRN ---
Patient transferred to post room # 277 via wheelchair accompanied by . PT introductions made and plan of care discussed per post , pain management, breast feeding, and daily care activities. PT sole recipient of such instructions. PT received such instructions per one to one discussion, mom baby care guide and demonstrations. Pt oriented to unit, room, information board, rooming in, admission packet and security measures. Patient verbalizes understanding.
[2023-04-22] MEDS: ACETAMINOPHEN 325 MG TABLET 650 MG PO (21:31)
[2023-04-22] MEDS: TETANUS,DIPHTHERIA,AC PERTUSSIS ADULT (0.5 ML) BOOSTRIX IM (21:31)
[2023-04-23 00:09] VITALS: BP 108/61; PULSE 70; RESP 14; TEMP 36.6; O2SAT 98
[2023-04-23] MEDS: IBUPROFEN 600 MG TABLET PO ×2 (04:13→10:00)
[2023-04-23 04:14] VITALS: BP 108/70; PULSE 73; RESP 14; TEMP 36.6; O2SAT 100
[2023-04-23 05:29] LABS: Hematocrit 33.8 % (37.0-47.0); Hemoglobin 11.3 g/dL (12.0-15.0)
[2023-04-23 08:00] VITALS: BP 108/64; PULSE 75; RESP 18; TEMP 36.7; O2SAT 99
--- NOTE | 2023-04-23 08:00 | PC.NURSE ---
Pt introductions made and plan of care discussed per post , pain management, breast feeding, daily care activities and pending discharge to home. PT sole recipient of such instructions and no barriers to learning identified at this time. PT received such instructions per one to one discussion, mom baby care guide and demonstrations this shift. PT verbalized understanding of such care.
--- NOTE | 2023-04-23 08:12 | P.DS_ITS ---
DS: Admitting Diagnosis Discharge Date April 23, 2023 Admitting Diagnosis term OB - DS: Summary OB Procedures : None OB Procedures Intrapartum: Spontaneous Vag Delivery OB Procedures: : None Time Spent with Patient Time attestation: Total time spent providing and/or coordinating discharge services: DS: Data Data Completed and Pending Labs on day of discharge: Labs from last 24 hours 04/23/23 04/22/23 04/22/23 04:07 10:56 08:02 Hgb 11.3 L Hct 33.8 L POC Capillary Glucose 143 H Urine Color Urine Appearance Urine pH Ur Specific [place] Urine Protein Urine Glucose (UA) Urine Ketones Ur Blood (Man) Urine Nitrate Urine Bilirubin Urine Urobilinogen Add Ur Microanalysis Leukocyte Esterase Rfl Urine RBC Urine WBC Ur Squamous Epith Cells Calcium Oxalate Crystal Urine Bacteria Urine Casts RPR Blood Type O Positive Antibody Screen Negative 04/22/23 04/22/23 07:30 06:31 Hgb Hct POC Capillary Glucose Urine Color Yellow Urine Appearance Cloudy H Urine pH 6.5 Ur Specific [place] 1.017 Urine Protein Negative Urine Glucose (UA) Negative Urine Ketones Negative Ur Blood (Man) Non-hemolyzed trace Urine Nitrate Negative Urine Bilirubin Negative Urine Urobilinogen 0.2 Add Ur Microanalysis Reviewed Leukocyte Esterase Rfl 3+ H Urine RBC 6-10 H Urine WBC 21-50 H Ur Squamous Epith Cells Moderate Calcium Oxalate Crystal Present Urine Bacteria 2+ H Urine Casts 0-2 RPR Non-reactive Blood Type Antibody Screen Discharge Plan Discharge Attending physician on discharge: Donato Payton Discharging Clinician: Donato Payton Patient Disposition: Home, Self-Care Activity: pelvic rest Diet: regular Patient Instructions: Antibiotic Form Stand Alone Forms: General Discharge Information Follow-up/Referrals: Donato Payton MD [Physician] - Discharge Medications: Continued levothyroxine 50 mcg Tablet 50 mcg PO DAILY aspirin 81 mg Tablet 81 mg PO DAILY prenat.vits,ophelia,blb-iwrq-mchyh Tablet 1 tablet DAILY dicyclomine 10 mg capsule 10 mg PO TID PRN (Reason: abdominal pain) Qty: 60 2RF Date of admission: 04/22/23 06:08 Primary Care Provider: Marcos Blackwell Admitting Provider: Donato Payton Attending physician on admission: Donato Payton Condition: Stable
[2023-04-23 08:14] VITALS: PULSE 66; RESP 16; O2SAT 100
[2023-04-23] MEDS: ACETAMINOPHEN 325 MG TABLET 650 MG PO (09:59)
[2023-04-23] MEDS: MULTIVIT/MIN/PREN/FOL AC/IRON TABLET 1 TAB PO (10:01)
[2023-04-23] MEDS: LEVOTHYROXINE SODIUM 50 MCG TABLET PO (10:01)
[2023-04-23] MEDS: DOCUSATE SODIUM 100 MG CAPSULE PO (10:01)
[2023-04-23] MEDS: LANOLIN (LANSINOH) 7.5 GM CREAM 1 APPLIC TOPICAL (10:03)
--- NOTE | 2023-04-23 10:09 | WPDANLDPN2 ---
Anes-Prog Note L&D Date/Time: 04/23/23 10:09 Comfortable throughout: labor and delivery Neuraxial method: epidural Epidural/Spinal procedure site: clean & non-tender Neuro status: Neuro function grossly intact. Cardiovascular status: normal Respiratory status: normal Airway patency: baseline Mental status: baseline Post-Op hydration status: normal Vital Signs: Last Vital Signs Temp 36.7 C 04/23/23 08:00 Pulse 75 04/23/23 08:00 Resp 18 04/23/23 08:00 BP 108/64 04/23/23 08:00 Pulse Ox 99 04/23/23 08:00 O2 Del Method Room Air 04/22/23 06:33 Pain score (VAS): 2/10 I/O: Intake & Output 04/22/23 04/23/23 04/23/23 23:59 07:59 15:59 Intake Total 500 Output Total 125 Balance 375 Post-procedural complaints: none Patient feedback: Patient satisfied with anesthetic care.
[2023-04-23 12:33] VITALS: BP 100/58; PULSE 66; RESP 16; TEMP 36.6; O2SAT 100
--- NOTE | 2023-04-23 13:25 | PC.NURSE ---
1115 Introductions were made, then consulted with patient to assess needs related to . Mother led the conversation with her?plans to feed?her and the?experience so far. Mother appears to work well with her infant and she expressed prior experience . Reviewed the benefits of skin to skin (demonstrating unwrapping and placing upright on her chest), stimulating with massage touch, changing positions to encourage wakefulness, how to watch for early feeding cues, responsive feeding, feeding on demand (aiming for 8-12 times in 24 hours, about every 2-3 hours), milk production, building/maintaining a milk supply, duration of feeding, signs of adequate intake/output and how to record on the feeding sheet. Reviewed positioning and ear, shoulder, hip alignment, supporting the breast to facilitate a deep latch, asymmetrical latch (off-center), leading with the chin with a big, open, wide gape and body close to mother. Education given to mother of how to visualize suck/swallow ratios and listen for drinking at the breast. was breastfed at 10:15 and mother denies difficulties with latch; she denies discomfort. Nipple care reviewed with optimal latch and good positioning. Reminding mother of comfort measures of healing with a warm and wet washcloth to rinse breast, then leave open to air-dry as needed. Reviewed good handwashing when or touching the breast/nipples to prevent infection. Resources used to facilitate learning were used with the mom and baby guide. Mother voiced understanding of skin to skin, stimulating with massage touch, responsive feedings, hand expressed colostrum, talking to infant to encourage if it has been 2 -2.5 hours since the start of the last , to call if does not latch, or if there is discomfort with . Mother voiced understanding of information, demonstrated learning and will call if there is a request for assistance. Reported to primary RN.
[2023-04-24 08:39] VITALS: BP 125/66; PULSE 79; RESP 16; TEMP 36.7; O2SAT 100
== END 2023-04-23 17:10 | disposition home or self-care (01) | DRG 560 ==
LOC: ANHLDR 06:11 → ANHOB2 18:02
PROVIDERS: Advanced Practice Midwife; Admitting Provider Obstetrics & Gynecology; PCP Family Medicine Adolescent Medicine; Visit Provider Obstetrics & Gynecology
DX: O24.429 Gestational diabetes mellitus in childbirth, unspecified control (principal); Z37.0 Single live birth; O70.0 First degree perineal laceration during delivery; Z3A.38 38 weeks gestation of pregnancy
CPT/HCPCS: 36415; 81001; 82948; 85014; 85018; 85025; 86592; 86703; 86850; 86900; 86901; 87086; 90715; A9270; G0432; J0696; J2405; J2590; J2795; J3010

== ENCOUNTER 2023-07-30 17:24 | Emergency (ER) | payer OTHER, SELFPAY ==
[2023-07-30 17:43] VITALS: BP 146/75; PULSE 91; RESP 16; TEMP 36.7; O2SAT 100
--- NOTE | 2023-07-30 17:48 | ED.URI ---
HPI - URI/Sore Throat General Chief Complaint: Upper Respiratory Infection Stated Complaint: sinus pressure Source: patient, RN notes reviewed and old records reviewed Mode of arrival: ambulatory Limitations: no limitations History of Present Illness HPI Narrative: 32-year-old female presents to urgent care with complaint sinus congestion, sinus pain and pressure, and headaches for 2 weeks. Patient taking [id number] medications with little relief. Patient denies chest pain, dizziness, weakness, vomiting, shortness of breath, fevers MD elicited complaint: nasal congestion and sinus pain Onset (ago): week(s) (2) Related Data Allergies Allergy/AdvReac Type Severity Reaction Status Date / Time No Known Allergies Allergy Verified 07/30/23 17:43 Review of Systems Constitutional: Constitutional: Reports no additional constitutional complaints Eyes: Eyes: Reports no additional eye complaints ENT: Reports as per HPI, Denies vertigo, Denies dizziness, Reports nasal congestion, Reports nasal discharge ( thick green discharge), Reports sinus pain and Reports sinus pressure Cardiovascular: Cardiovascular: Reports no additional cardiovascular complaints Respiratory: Respiratory: Reports no additional respiratory complaints Neurologic: Reports system reviewed and no additional complaints, except as documented [facility] Past Medical History Medical History Hypothyroid IUP (intrauterine ), incidental No significant medical problems Obesity (BMI 30-39.9) Surgical History Surgical History No significant past surgical history Family History Family History Mother Diabetes mellitus Hypertension COPD (chronic obstructive pulmonary disease) Osteoporosis Father Hyperlipemia Arthritis Social History Social History Smoking status: Never smoker Second hand tobacco smoke exposure: No Alcohol intake: current Alcohol use details: Seldom Substance use: never Substance use type: does not use Lack of Transportation: No Lack of Food: Never True Current Housing: I Have Housing Concerned About Future Housing: No Difficulty Paying Gas/Electric Bills: No Difficulty Paying for Meds: No Currently Unemployed: No Education: Don't Know Difficulty w/ Childcare or Family Care: No Living arrangements: with family Occupation/Education: unemployed Gender identity (if verbalized by the patient): Female Spiritual care concerns: No Agree to blood products: Yes Comments At the time of my signature, I reviewed and agree with the nursing past medical, surgical, social, and family history. There is no relevant family history pertinent to the patient complaint. Exam Const: General: cooperative, healthy appearing, no acute distress and well nourished Nutritional Appearance: well nourished Orientation/consciousness: patient oriented x3 Limitations: no limitations HENMT: Head: normal to inspection and normocephalic Ears: external ears normal, TM's normal bilaterally, mastoids normal and Abnormal EAC present Face/Nose/Sinus: nasal polyps, Abnormal mucous membranes and turbinates present erythematous, normal facial exam, sinus tenderness ( maxillary sinus tenderness) and Facial tenderness on exam of face and sinuses Face and sinus: normal facial exam Mouth: Yes Normal oral and palatal mucosa present, Yes oropharynx normal and Yes moist mucous membranes Throat: posterior oropharynx normal, tonsils normal, uvula midline and no uvular edema Eyes: General: appearance normal, both eyes and all related structures Sclera: sclerae normal Pupils: Equal, round and reactive pupils present Resp: Effort & Inspection: normal respiratory effort, able to speak in complete sentences, no audib
== END 2023-07-30 17:55 | disposition home or self-care (01) ==
PROVIDERS: Emergency Provider Registered Nurse; PCP Family Medicine Adolescent Medicine
DX: J01.90 Acute sinusitis, unspecified (principal); E03.9 Hypothyroidism, unspecified; E66.9 Obesity, unspecified; Z68.33 Body mass index [BMI] 33.0-33.9, adult
CPT/HCPCS: 99213; G0463

== ENCOUNTER 2023-10-30 15:00 | Outpatient (CLI) | payer OTHER, SELFPAY ==
--- NOTE | ~2023-10-30 | CT_ITS ---
EXAMINATION: CT abdomen wo con DATE: 10/30/2023 15:37 INDICATION: Right upper quadrant abdominal pain. TECHNIQUE: Computed tomography (CT) of the abdomen was performed without intravenous contrast. Automa mari exposure control and iterative reconstruction technique were employed. The dose-length product wa s 672.67 mGy-cm. COMPARISON: Abdomen ultrasound 02/09/2023 FINDINGS: The visualized portions of the lung bases are clear without pneumonia or pleural effusion. The heart size is normal. No pericardial effusion. There are cysts in the liver measuring up to 12 mm . The gallbladder, spleen, pancreas, adrenal glands, and kidneys are normal. There is no urolithiasis . There are no dilated loops of bowel. The appendix is normal. There are no pathologically enlarged l ymph nodes. There is no free intraperitoneal fluid. The bones are unremarkable. IMPRESSION: 1. No etiology for the patient's symptoms. Reviewed, dictated and finalized at location E. RE DANCE CALLER
== END 2023-10-30 15:01 | disposition home or self-care (01) ==
LOC: ANHIMG 15:03
PROVIDERS: PCP Family Medicine Adolescent Medicine; Visit Provider Family Medicine Adolescent Medicine
DX: R10.11 Right upper quadrant pain (principal); N13.30 Unspecified hydronephrosis
CPT/HCPCS: 74150

== ENCOUNTER 2023-11-10 02:02 | Day surgery (SDC) | payer OTHER, SELFPAY ==
[2023-11-05 12:10] VITALS: BMI 35.2
--- NOTE | 2023-11-05 12:14 | PC.NURSE ---
Report to the Outpatient Waiting Room, entrance under the green pavilion located off [facility], at time 0900 on date 11/10/23. Planned Procedure Time: 1100. Time changes happen often and if your time is changed the preop area will call you the afternoon before. - You and your visitor will be asked to self-screen and do not enter if you have any COVID symptoms. - A mask is optional within the hospital at this time. Patients may have clear liquids (water, carbonated beverages, clear teas, apple juice) until 3 hours prior to surgery with a maximum of 20 ounces. - No food from midnight until time of surgery Take the following medications with a SIP of water the morning of surgery: LEVOTHYROXINE DO NOT STOP ANY OF YOUR OTHER PRESCRIPTION MEDICATIONS PRIOR TO SURGERY ?EXCEPT THE FOLLOWING Medications to discontinue per physician: N/A Date to take last dose: N/A Please no make-up, nail montenegrin, hairspray, perfume, deodorant, or body powder the day of surgery. No jewelry (including any body piercings) or valuables the day of surgery, leave them at home. Please take a shower or bath the night before, or the morning of, surgery with an antibacterial soap. Wear comfortable, loose fitting clothing. - Jewelry must be removed prior to entering the operating room. Rings and piercings that are not removed may be cut off. - The hospital will not accept responsibility for valuables. - Please leave all valuables, including medications, at home the day of surgery. If you are going home after surgery, a licensed hazmat truck driver must drive you home. - NO public transportation without another adult if you receive anesthesia. - We recommend that an adult stay with you for 24 hours following discharge. - We also recommend that you do not drive, make important decision, drink alcoholic beverages, or take any drugs that were not prescribed by your health care provider for at least 24 hours after your discharge time. Follow any additional instructions given to you from your surgeon. If you or anyone in your household have experienced Covid symptoms in the past week, please notify your surgeon or the nurse liaison at the phone number below for possible testing. Telephone instructions given to PT - JONNATHAN DURAN and asked if any additional questions and then verbalized understanding. Patient advised to call surgeon office or pre surgery nurse liaison [phone] if any additional questions.
[2023-11-10] MEDS: ACETAMINOPHEN 500 MG TABLET 1000 MG PO (09:14)
[2023-11-10 09:35] VITALS: BP 117/77; PULSE 86; RESP 16; TEMP 36.6; O2SAT 100
[2023-11-10] MEDS: LACTATED RINGERS 1,000 ML 30 ML IV CONT (09:38)
--- NOTE | 2023-11-10 09:43 | WPDANESEPPF ---
Anes - Initial Pre Proc Eval Procedure: Operation Date: 11/10/23 11:00 Proposed Procedures p Suction Dilatation and Curettage - Donato Payton MD Date/Time: 11/10/23 09:43 Surgeon: Donato Payton MD Pre Op Diagnosis: retained products of conception Patient Data Age: 33 Gender: F Height: 1.7 m Weight: 96.6 kg Last Vital Signs Temp 36.6 C 11/10/23 09:35 Pulse 86 11/10/23 09:35 Resp 16 11/10/23 09:35 BP 117/77 11/10/23 09:35 Pulse Ox 100 11/10/23 09:35 O2 Del Method Room Air 11/10/23 09:35 Allergies Allergy/AdvReac Type Severity Reaction Status Date / Time No Known Allergies Allergy Verified 11/10/23 09:11 Home Medications Medication Instructions Recorded Confirmed Type levothyroxine 25 mcg tablet 25 mcg PO DAILY 10/27/23 11/10/23 History hyoscyamine sulfate 0.125 mg tablet 0.125 mg PO QID PRN abdominal pain 11/02/23 11/10/23 Rx #60 tabs Patient hx anesthesia problems: none Family hx anesthesia problems: none Results Review: All pre-operative results and documents have been reviewed as part of the pre-operative evaluation. [facility] Past Medical History Medical History Hypothyroid IUP (intrauterine ), incidental No significant medical problems Obesity (BMI 30-39.9) Surgical History Surgical History No significant past surgical history Family History Family History Mother Diabetes mellitus Hypertension COPD (chronic obstructive pulmonary disease) Osteoporosis Father Hyperlipemia Arthritis Social History Social History Smoking status: Never smoker Second hand tobacco smoke exposure: No Alcohol intake: never Alcohol use details: Seldom Substance use: never Substance use type: does not use Lack of Transportation: No Lack of Food: Never True Current Housing: I Have Housing Concerned About Future Housing: No Difficulty Paying Gas/Electric Bills: No Difficulty Paying for Meds: No Currently Unemployed: No Education: Don't Know Difficulty w/ Childcare or Family Care: No Living arrangements: with family Occupation/Education: unemployed Gender identity (if verbalized by the patient): Female Spiritual care concerns: No Agree to blood products: Yes Anes - Eval Final PreProcedure Day of Procedure 11/10/23 09:43 Patient weight: obese Heart: regular rate and rhythm Lungs: clear to auscultation Airway: Mallampati scale class II Neurological: alert and oriented Last oral intake: >/= 8 hours ASA classification: II Emergent: no Anesthetic plan: proceed Anesthesia type and monitoring: general GIVS and standard monitoring Results Review: All pre-operative results and documents have been reviewed as part of the pre-operative evaluation. Informed Consent: The patient's anesthetic plan and its attendant risks and benefits were discussed with the patient/family/POA. Questions were solicited and answers provided to the satisfaction of the patient/family/POA.
--- NOTE | 2023-11-10 10:01 | WPDHPUPDATE1 ---
History and Physical Update Update Date/Time: 11/10/23 10:01 History and Physical has been reviewed, including an updated exam of the patient. There are NO changes in the patient's condition. Risks, benefits, and alternatives have been discussed and questions answered. Patient agrees to proceed with procedure.
--- NOTE | 2023-11-10 10:02 | WPDHPUPDATE1 ---
History and Physical Update Update Date/Time: 11/10/23 10:02 History and Physical has been reviewed, including an updated exam of the patient. There are NO changes in the patient's condition. Risks, benefits, and alternatives have been discussed and questions answered. Patient agrees to proceed with procedure.
[2023-11-10] MEDS: KETOROLAC 30 MG/ML VIAL (*BKC) IV PUSH (10:38)
[2023-11-10 10:47] VITALS: BP 105/53; PULSE 77; RESP 18; O2SAT 97
--- NOTE | 2023-11-10 10:52 | W.PM.PROC2 ---
Procedure Note - Detailed Date of Procedure 11/10/23 Pre-op Diagnosis retained products of conception Post-op Diagnosis Same Procedure Performed Suction D&C Surgeon Donato Payton MD Anesthesia MAC Indications missed Findings normal-appearing vulva vagina and cervix to. Moderate amount of products conception within the uterus. 8 cm uterus Description of Procedure the patient was taken the operating room. She was prepped and draped in dorsal lithotomy position after induction of mac anesthesia. A speculum was placed in the vagina. Cervix grasped with tenaculum. The cervix was dilated to about 1 cm Using Sanchez dilators. A 8. Slovenian curved curette was used to perform suction D&C. The curette was introduced and vacuum was applied. The curette was removed over all surfaces of the intrauterine cavity multiple times. This was done until all the surfaces were clear and had the familiar grainy texture they can be felt through the instrument. A sharp curette was then used to curettage all the surfaces. The suction cup was then reapplied 1 more time to remove any debris. The instruments were removed. The speculum and tenaculum were removed. The patient tolerated the procedure well. She was taken recovery room stable condition. Estimated Blood Loss 50 Drains No Packing No Pathology Yes Complications No immediate complications Condition Stable Disposition PACU
[2023-11-10 11:15] VITALS: BP 103/54; PULSE 55; RESP 18
[2023-11-10 11:40] VITALS: BP 111/55; PULSE 55; RESP 18
== END 2023-11-10 11:55 | disposition home or self-care (01) ==
PROVIDERS: PCP Family Medicine Adolescent Medicine; Visit Provider Obstetrics & Gynecology
PROC: (CPT 59820; principal; 2023-11-10 11:00)
DX: O02.1 Missed abortion (principal); E03.9 Hypothyroidism, unspecified
CPT/HCPCS: 59820; 88305; A9270; J1100; J1885; J2250; J2405; J2704; J3010; J7120

== ENCOUNTER 2024-01-20 08:57 | Outpatient (CLI) | payer OTHER, SELFPAY ==
[2024-01-20 20:12] LABS: Free T4 Free Thyroxine 0.69 ng/mL (0.78-2.19)
[2024-01-20 20:54] LABS: Alanine Aminotransferase 17 U/L (6-35); Albumin Level 4.4 g/dL (3.5-5.1); Alkaline Phosphatase 93 U/L (38-126); Anion Gap 6 mmol/L (4-12); Aspartate Amino Transferase 24 U/L (14-36); Bilirubin,Total 0.4 mg/dL (0.2-1.3); Blood Urea Nitrogen 10 mg/dL (7-17); Calcium 8.8 mg/dL (8.4-10.2); Carbon Dioxide 27 mmol/L (22-30); Chloride 105 mmol/L (98-107); Cholesterol 186 mg/dL (0-200); Estimated Glomerular Filt Rate > 60; Glucose 107 mg/dL (65-110); HDL Direct 44 mg/dL; Potassium 4.1 mmol/L (3.4-5.0); Sodium 138 mmol/L (137-145); Triglycerides 192 mg/dL (<150)
[2024-01-20 20:57] LABS: Total Triiodothyronine (T3) 1.51 NG/ML (0.97-1.69)
[2024-01-20 21:05] LABS: LDL Cholesterol Direct 114 mg/dL
[2024-01-22 13:57] LABS: Thyroid Peroxidase Antibodies 726 IU/mL (<9)
[2024-01-26 19:24] LABS: Thyroid Stimulating Immunoglob <89 % baseline (<140)
[2024-01-29 18:44] LABS: Thyrotropin Receptor Antibody <1.00 IU/L (< OR = 2.00)
== END 2024-01-20 08:58 | disposition home or self-care (01) ==
LOC: ANHGOSHLAB 08:58
PROVIDERS: Nurse Practitioner Family; PCP Family Medicine Adolescent Medicine; Visit Provider Internal Medicine
DX: K76.0 Fatty (change of) liver, not elsewhere classified (principal); E03.9 Hypothyroidism, unspecified; Z13.220 Encounter for screening for lipoid disorders
CPT/HCPCS: 36415; 80053; 80061; 83519; 84439; 84443; 84445; 84480; 86376

== ENCOUNTER 2024-02-04 07:11 | Outpatient (CLI) | payer OTHER, SELFPAY ==
--- NOTE | ~2024-02-04 | US_ITS ---
EXAMINATION: US thyroid DATE: 02/04/2024 07:37 INDICATION: Goiter TECHNIQUE: Multiple ultrasound images of the thyroid were obtained. COMPARISON: None. FINDINGS: The right thyroid lobe measures 4.1 x 1.9 x 2.0 cm. The left thyroid lobe measures 3.7 x 1.5 x 1.7 c m. Increased vascular flow and coarsened echotexture with hypoechoic pseudo nodular pattern diffusel y throughout the thyroid which can be seen in the setting of Rena's thyroiditis. There is a larg er and very hypoechoic 8 mm wide than tall solid nodule with lobular margins and without abnormal ech ogenic foci in the right thyroid lobe (TI-RADS 5, highly suspicious , FNA if >=1.0 cm, annual followu p is >0.5 cm). IMPRESSION: 1. Increased vascularity and heterogeneous hypoechoic pseudo nodular pattern throughout the thyroid w hich can be seen in the setting of Rena's/lymphocytic thyroiditis. 2. 8 mm TI RADS 5 right thyroid nodule which annual ultrasound would be recommended. Reviewed, dictated and finalized at location A. IMPRESSION: 1. Increased vascularity and heterogeneous hypoechoic pseudo nodular pattern th roughout the thyroid which can be seen in the setting of Rena's/lymphocyti c thyroiditis. 2. 8 mm TI RADS 5 right thyroid nodule which annual ultrasound would be recomme nded.
== END 2024-02-04 07:12 | disposition home or self-care (01) ==
PROVIDERS: PCP Family Medicine Adolescent Medicine; Visit Provider Internal Medicine
DX: E04.1 Nontoxic single thyroid nodule (principal); E03.9 Hypothyroidism, unspecified
CPT/HCPCS: 76536

== ENCOUNTER 2024-03-17 12:45 | Outpatient (CLI) | payer OTHER, SELFPAY ==
--- NOTE | ~2024-03-17 | MMUS_ITS ---
EXAMINATION: MM diagnostic horacio BI w lucia, US breast LT limited HISTORY: Palpable left breast abnormality. TECHNIQUE: Additional 3-D tomosynthesis images of the breasts were performed and synthetic 2-D images were generated. CAD analysis was submitted and interpreted. High resolution left breast ultrasound w as performed. COMPARISON: No prior studies for comparison. BREAST PARENCHYMAL COMPOSITION: Not dense: There are scattered areas of fibroglandular density. FINDINGS: MAMMOGRAPHIC FINDINGS: There are no suspicious masses, calcifications or architectural distortion in either breast to sugges t malignancy. ULTRASOUND: Limited left breast ultrasound: Normal heterogeneous echotexture without focal solid or cystic mass. IMPRESSION: 1. No evidence for malignancy in either breast. 2. Routine yearly screening mammogram and regular clinical breast examination are recommended. BI-RADS Category 1: Negative Reviewed, dictated and finalized at location B. IMPRESSION: 1. No evidence for malignancy in either breast. 2. Routine yearly screening mammogram and regular clinical breast examination a re recommended. BI-RADS Category 1: Negative
== END 2024-03-17 12:46 | disposition home or self-care (01) ==
PROVIDERS: PCP Family Medicine Adolescent Medicine; Visit Provider Nurse Practitioner
DX: N63.0 Unspecified lump in unspecified breast (principal)
CPT/HCPCS: 76642; 77062; 77066; G0279

== ENCOUNTER 2024-04-07 12:01 | Outpatient (CLI) | payer OTHER, SELFPAY ==
--- NOTE | ~2024-04-07 | US_ITS ---
EXAMINATION: US thyroid DATE: 04/07/2024 14:11 INDICATION: Thyroid nodule. TECHNIQUE: Multiple ultrasound images of the thyroid were obtained. The neck was prepped and draped i n the usual sterile manner. 1% lidocaine was used for local anesthesia. No biopsy was performed. FINDINGS: The thyroid is diffusely heterogeneous. The previously described small nodule right thyroid lobe is n ot distinct from surrounding parenchyma on real-time imaging. IMPRESSION: 1. Heterogeneous thyroid, consistent with chronic lymphocytic (Rena) thyroiditis. The previously described nodule was not distinct from surrounding parenchyma on real-time imaging and is likely a f eature of the thyroiditis. The biopsy was canceled. Reviewed, dictated and finalized at location A. IMPRESSION: 1. Heterogeneous thyroid, consistent with chronic lymphocytic (Rena) thyro iditis. The previously described nodule was not distinct from surrounding paren chyma on real-time imaging and is likely a feature of the thyroiditis. The biop sy was canceled.
== END 2024-04-07 12:02 | disposition home or self-care (01) ==
LOC: ANHIMG 12:03
PROVIDERS: PCP Family Medicine Adolescent Medicine; Visit Provider Internal Medicine
DX: E04.1 Nontoxic single thyroid nodule (principal)
CPT/HCPCS: 76536